=== PATIENT | male | born 1950 | race Caucasian/White ===

== ENCOUNTER 2020-06-09 17:24 | Inpatient (IN) ==
[2020-06-09] MEDS ORDERED: 0.9 % Sodium Chloride 1,000 ML IVC ONE ×3 (17:56→19:25)
[2020-06-09 18:23] LABS: Bilirubin,Urine Negative (Negative); Blood,Urine Large (Negative); Clarity,Urine Turbid (Clear); Color,Urine Yellow (Yellow); Glucose,Urine (UA) Normal (Normal); Ketones,Urine Negative (Negative); Leukocyte Esterase,Urine Large (Negative); Nitrite,Urine Positive (Negative); PH,Urine >=9.0 pH Units (5.0-8.0); Protein,Urine >=300 mg/dL (Neg-Trace); Specific Gravity,Urine 1.015 (1.010-1.025); Urobilinogen,Urine Normal (Normal)
[2020-06-09 18:25] LABS: Basophils # 0.1 K/mcL (0.0-0.2); Basophils % 0.3 %; Hematocrit 50.2 % (37.5-50.1); Hemoglobin 16.4 g/dL (12.9-16.9); Immature Granulocytes % 0.6 % (0-4); Lymphocytes # 0.7 K/mcL (0.6-4.6); Lymphocytes % 3.2 %; Mean Corpuscular HGB Conc 32.7 g/dL (31.6-35.5); Mean Corpuscular Hemoglobin 29.2 pg (28.0-33.3); Mean Corpuscular Volume 89.3 fL (83.0-100.0); Mean Platelet Volume 10.6 fL (9.4-12.4); Monocytes # 1.8 K/mcL (0.0-1.3); Monocytes % 8.1 %; Neutrophils # 19.1 K/mcL (1.6-8.9); Platelet Count 268 K/mcL (140-400); Red Blood Count 5.62 M/mcL (4.19-5.50); Red Cell Distribution Width 14.6 % (11.5-14.5); Segmented Neutrophils % 87.8 %; White Blood Count 21.7 K/mcL (4.3-11.1)
[2020-06-09 18:32] LABS: Bacteria,Urine Many per hpf (None-Few); Mucus,Urine Many per lpf (None-Few); RBC,Urine 30-50 per hpf (0-3); Squamous Epithelial Cell,Urine Few per hpf (None-Few); WBC,Urine TNTC per hpf (0-3)
[2020-06-09 18:35] LABS: VBG HCO3 28 mEq/L (21-27); VBG PCO2 44 mmHg (41-51); VBG PH 7.41 pH Units (7.32-7.42); VBG PO2 51 mmHg (25-50)
[2020-06-09 18:44] LABS: Albumin 4.1 g/dL (3.5-5.7); Albumin/Globulin Ratio 1.2 (1.1-2.2); Bilirubin,Total 1.1 mg/dL (0.3-1.0); Calcium 10.4 mg/dL (8.6-10.3); Globulin 3.5 g/dL (2.4-3.5); Potassium 5.3 mEq/L (3.5-5.1); Total Protein 7.6 g/dL (6.4-8.9)
[2020-06-09] MEDS ORDERED: D5% in Water 1,000 ML IVC PRN (19:25)
[2020-06-09] MEDS ORDERED: *HR* Dextrose 50 % in Water (Vial) 50 ML VIAL IVP PRN (19:25)
[2020-06-09] MEDS ORDERED: Naloxone 0.4 MG/ML INJ IVP PRN (19:25)
[2020-06-09] MEDS ORDERED: Dextrose Gel 15 GM/37.5 ML TUBE PO PRN ×2 (19:25)
[2020-06-09] MEDS ORDERED: Acetaminophen 325 MG TABLET PO PRN ×2 (19:36→19:49)
[2020-06-09] MEDS: 0.9 % Sodium Chloride 1,000 ML IVC SCH (20:10)
[2020-06-09] MEDS: Aspirin 81 MG TAB.CHEW PO SCH (21:49)
[2020-06-09] MEDS: levETIRAcetam 250 MG TABLET PO SCH (21:49)
[2020-06-10] MEDS ORDERED: Insulin LISPRO 300 UNITS/3 ML VIAL SQ SCH
[2020-06-10] MEDS: 0.9 % Sodium Chloride 1,000 ML IVC SCH ×3 (03:13→15:15)
[2020-06-10] MEDS: levETIRAcetam 250 MG TABLET PO SCH ×2 (09:28→22:07)
[2020-06-10] MEDS: Acetaminophen 325 MG TABLET PO PRN ×3 (09:29→22:07)
[2020-06-10] MEDS: *HR* Rivaroxaban 10 MG TABLET PO SCH (09:29)
[2020-06-10] MEDS: Insulin LISPRO 300 UNITS/3 ML VIAL SQ SCH ×4 (09:45→22:07)
[2020-06-10 10:28] LABS: Hematocrit 48.1 % (37.5-50.1); Hemoglobin 15.5 g/dL (12.9-16.9)
[2020-06-10 11:44] LABS: Basophils # 0.1 K/mcL (0.0-0.2); Basophils % 0.3 %; Hematocrit 46.2 % (37.5-50.1); Immature Granulocytes % 0.5 % (0-4); Lymphocytes # 0.4 K/mcL (0.6-4.6); Lymphocytes % 2.5 %; Mean Corpuscular HGB Conc 32.5 g/dL (31.6-35.5); Mean Corpuscular Hemoglobin 29.9 pg (28.0-33.3); Mean Platelet Volume 10.5 fL (9.4-12.4); Monocytes % 5.5 %; Neutrophils # 15.7 K/mcL (1.6-8.9); Platelet Count 218 K/mcL (140-400); Red Blood Count 5.02 M/mcL (4.19-5.50); Segmented Neutrophils % 91.2 %; White Blood Count 17.2 K/mcL (4.3-11.1)
[2020-06-10] MEDS: Nystatin POWDER 30 GM BOTTLE TP SCH ×2 (15:17→22:07)
[2020-06-10 16:52] LABS: BUN/Creatinine Ratio 20 (6-26); Blood Urea Nitrogen 27 mg/dL (8-23); Calcium 9.1 mg/dL (8.6-10.3); Carbon Dioxide 29 mEq/L (23-29); Chloride 102 mEq/L (98-107); Glucose 190 mg/dL (70-105); Osmolality,Calculated 294 (280-300); Potassium 4.9 mEq/L (3.5-5.1); Sodium 137 mEq/L (136-145); eGFR For African Americans > 60 (> 60); eGFR For Non-African Americans 52 (> 60)
[2020-06-10 20:58] LABS: Acinetobacter baumannii by PCR Not Detected (Not Detect); Enterobacter cloacae Cmplx PCR Not Detected (Not Detect); Enterobacteriaceae by PCR Not Detected (Not Detect); Enterococcus by PCR Not Detected (Not Detect); Escherichia coli by PCR Not Detected (Not Detect); Klebsiella oxytoca by PCR Not Detected (Not Detect); Klebsiella pneumoniae by PCR Not Detected (Not Detect); Staphylococcus aureus by PCR Not Detected (Not Detect); Staphylococcus by PCR Not Detected (Not Detect); Streptococcus agalactiae(B)PCR Not Detected (Not Detect); Streptococcus by PCR Not Detected (Not Detect); Streptococcus pneumoniae PCR Not Detected (Not Detect); Streptococcus pyogenes (A) PCR Not Detected (Not Detect); blaKPC Carbapenem-Resist Gene Not Detected (Not Detect); mecA Methicillin-Resist Gene Not Detected (Not Detect); vanA/B Vancomycin-Resist Genes Not Detected (Not Detect)
[2020-06-10 20:59] LABS: Candida albicans by PCR Not Detected (Not Detect); Candida glabrata by PCR Not Detected (Not Detect); Candida krusei by PCR Not Detected (Not Detect); Candida parapsilosis by PCR Not Detected (Not Detect); Candida tropicalis by PCR Not Detected (Not Detect); Proteus by PCR DETECTED (Not Detect); Pseudomonas aeruginosa by PCR Not Detected (Not Detect); Serratia marcescens by PCR Not Detected (Not Detect)
[2020-06-10] MEDS: Aspirin 81 MG TAB.CHEW PO SCH (22:06)
[2020-06-11] MEDS: 0.9 % Sodium Chloride 1,000 ML IVC SCH ×2 (01:08→09:40)
[2020-06-11] MEDS: Acetaminophen 325 MG TABLET PO PRN ×2 (04:06→20:33)
[2020-06-11] MEDS: Ondansetron 4 MG/2 ML VIAL IVP PRN (04:06)
[2020-06-11 09:18] LABS: Basophils % 0.3 %; Hematocrit 46.8 % (37.5-50.1); Hemoglobin 14.5 g/dL (12.9-16.9); Immature Granulocytes % 0.4 % (0-4); Lymphocytes # 0.5 K/mcL (0.6-4.6); Lymphocytes % 5.4 %; Mean Corpuscular Hemoglobin 29.3 pg (28.0-33.3); Mean Corpuscular Volume 94.5 fL (83.0-100.0); Mean Platelet Volume 10.6 fL (9.4-12.4); Monocytes # 0.8 K/mcL (0.0-1.3); Monocytes % 7.9 %; Neutrophils # 8.4 K/mcL (1.6-8.9); Platelet Count 176 K/mcL (140-400); Red Blood Count 4.95 M/mcL (4.19-5.50); Red Cell Distribution Width 15.1 % (11.5-14.5); White Blood Count 9.7 K/mcL (4.3-11.1)
[2020-06-11 09:28] LABS: BUN/Creatinine Ratio 23 (6-26); Blood Urea Nitrogen 25 mg/dL (8-23); Calcium 8.6 mg/dL (8.6-10.3); Carbon Dioxide 30 mEq/L (23-29); Chloride 104 mEq/L (98-107); Glucose 187 mg/dL (70-105); Osmolality,Calculated 297 (280-300); Potassium 4.2 mEq/L (3.5-5.1); Sodium 139 mEq/L (136-145); eGFR For African Americans > 60 (> 60); eGFR For Non-African Americans > 60 (> 60)
[2020-06-11] MEDS: Insulin LISPRO 300 UNITS/3 ML VIAL SQ SCH ×4 (09:35→20:44)
[2020-06-11] MEDS: *HR* Rivaroxaban 10 MG TABLET PO SCH (09:36)
[2020-06-11] MEDS: Nystatin POWDER 30 GM BOTTLE TP SCH ×2 (09:36→20:31)
[2020-06-11] MEDS: levETIRAcetam 250 MG TABLET PO SCH ×2 (09:36→20:33)
[2020-06-11] MEDS: Ipratropium/Albuterol Neb 3 ML IH SCH ×3 (12:45→20:02)
[2020-06-11] MEDS: Aspirin 81 MG TAB.CHEW PO SCH (20:33)
[2020-06-12] MEDS: Ipratropium/Albuterol Neb 3 ML IH SCH ×6 (00:01→20:58)
[2020-06-12] MEDS: *HR* Rivaroxaban 10 MG TABLET PO SCH (08:51)
[2020-06-12] MEDS: levETIRAcetam 250 MG TABLET PO SCH ×2 (08:51→19:37)
[2020-06-12] MEDS: Insulin LISPRO 300 UNITS/3 ML VIAL SQ SCH ×4 (08:51→20:06)
[2020-06-12] MEDS: Nystatin POWDER 30 GM BOTTLE TP SCH ×2 (09:59→19:47)
[2020-06-12 14:24] LABS: Basophils % 0.3 %; Eosinophils # 0.1 K/mcL (0.0-0.6); Eosinophils % 0.8 %; Hematocrit 45.5 % (37.5-50.1); Hemoglobin 14.3 g/dL (12.9-16.9); Immature Granulocytes % 0.3 % (0-4); Lymphocytes # 0.6 K/mcL (0.6-4.6); Lymphocytes % 7.3 %; Mean Corpuscular HGB Conc 31.4 g/dL (31.6-35.5); Mean Corpuscular Hemoglobin 29.7 pg (28.0-33.3); Mean Corpuscular Volume 94.4 fL (83.0-100.0); Mean Platelet Volume 10.9 fL (9.4-12.4); Monocytes % 11.5 %; Neutrophils # 6.9 K/mcL (1.6-8.9); Platelet Count 161 K/mcL (140-400); Red Blood Count 4.82 M/mcL (4.19-5.50); Red Cell Distribution Width 14.7 % (11.5-14.5); Segmented Neutrophils % 79.8 %; White Blood Count 8.6 K/mcL (4.3-11.1)
[2020-06-12 14:46] LABS: BUN/Creatinine Ratio 19 (6-26); Blood Urea Nitrogen 19 mg/dL (8-23); Calcium 8.5 mg/dL (8.6-10.3); Carbon Dioxide 32 mEq/L (23-29); Chloride 100 mEq/L (98-107); Glucose 230 mg/dL (70-105); Osmolality,Calculated 292 (280-300); Potassium 4.4 mEq/L (3.5-5.1); Sodium 136 mEq/L (136-145); eGFR For African Americans > 60 (> 60); eGFR For Non-African Americans > 60 (> 60)
[2020-06-12] MEDS: Acetaminophen 325 MG TABLET PO PRN (17:33)
[2020-06-12] MEDS: Aspirin 81 MG TAB.CHEW PO SCH (19:37)
[2020-06-12] MEDS ORDERED: Ondansetron 4 MG/2 ML VIAL IVP ONE (20:17)
[2020-06-12] MEDS: Ondansetron 4 MG/2 ML VIAL IVP PRN (20:25)
[2020-06-13] MEDS: Ipratropium/Albuterol Neb 3 ML IH SCH ×5 (00:13→15:23)
[2020-06-13 07:40] LABS: Basophils % 0.3 %; Eosinophils # 0.1 K/mcL (0.0-0.6); Hematocrit 45.7 % (37.5-50.1); Hemoglobin 14.3 g/dL (12.9-16.9); Immature Granulocytes % 0.3 % (0-4); Lymphocytes # 0.8 K/mcL (0.6-4.6); Lymphocytes % 8.4 %; Mean Corpuscular HGB Conc 31.3 g/dL (31.6-35.5); Mean Corpuscular Hemoglobin 29.2 pg (28.0-33.3); Mean Corpuscular Volume 93.3 fL (83.0-100.0); Mean Platelet Volume 11.1 fL (9.4-12.4); Monocytes % 11.5 %; Neutrophils # 7.1 K/mcL (1.6-8.9); Platelet Count 173 K/mcL (140-400); Red Cell Distribution Width 14.5 % (11.5-14.5); Segmented Neutrophils % 78.5 %; White Blood Count 9.1 K/mcL (4.3-11.1)
[2020-06-13 07:51] LABS: BUN/Creatinine Ratio 19 (6-26); Blood Urea Nitrogen 18 mg/dL (8-23); Calcium 8.6 mg/dL (8.6-10.3); Carbon Dioxide 35 mEq/L (23-29); Chloride 98 mEq/L (98-107); Glucose 199 mg/dL (70-105); Osmolality,Calculated 291 (280-300); Potassium 4.1 mEq/L (3.5-5.1); Sodium 137 mEq/L (136-145); eGFR For African Americans > 60 (> 60); eGFR For Non-African Americans > 60 (> 60)
[2020-06-13] MEDS: *HR* Rivaroxaban 10 MG TABLET PO SCH (09:12)
[2020-06-13] MEDS: Nystatin POWDER 30 GM BOTTLE TP SCH (09:13)
[2020-06-13] MEDS: levETIRAcetam 250 MG TABLET PO SCH (09:13)
[2020-06-13 11:32] VITALS: BP 119/69
[2020-06-13] MEDS: Insulin LISPRO 300 UNITS/3 ML VIAL SQ SCH ×2 (12:52→12:53)
== END 2020-06-13 15:55 | disposition home or self-care (01) | DRG 871 ==
LOC: INPGRE 17:24 → EMEROOGRE 17:24 → INPGRE 20:05
PROVIDERS: ADMIT Family Medicine; ATTEND Family Medicine

== ENCOUNTER 2020-08-14 10:54 | Inpatient (IN) ==
[2020-08-14 11:54] LABS: Bilirubin,Urine Negative (Negative); Blood,Urine Moderate (Negative); Clarity,Urine Clear (Clear); Color,Urine Yellow (Yellow); Glucose,Urine (UA) Normal (Normal); Ketones,Urine Negative (Negative); Leukocyte Esterase,Urine Moderate (Negative); Nitrite,Urine Positive (Negative); PH,Urine 5.5 pH Units (5.0-8.0); Protein,Urine 30 mg/dL (Neg-Trace); Specific Gravity,Urine >= 1.030 (1.010-1.025); Urobilinogen,Urine Normal (Normal)
[2020-08-14 12:02] LABS: Bacteria,Urine Many per hpf (None-Few); WBC,Urine TNTC per hpf (0-3)
[2020-08-14] MEDS ORDERED: cefTRIAXone 1,000 MG in Water for inj. (sterile) 10 ML IVP ONE (12:35)
[2020-08-14 13:06] LABS: Basophils # 0.1 K/mcL (0.0-0.2); Basophils % 0.8 %; Eosinophils # 0.6 K/mcL (0.0-0.6); Eosinophils % 5.5 %; Hematocrit 49.9 % (37.5-50.1); Hemoglobin 15.9 g/dL (12.9-16.9); Immature Granulocytes % 0.4 % (0-4); Lymphocytes # 1.8 K/mcL (0.6-4.6); Lymphocytes % 16.4 %; Mean Corpuscular HGB Conc 31.9 g/dL (31.6-35.5); Mean Corpuscular Hemoglobin 29.2 pg (28.0-33.3); Mean Corpuscular Volume 91.7 fL (83.0-100.0); Mean Platelet Volume 11.1 fL (9.4-12.4); Monocytes % 9.2 %; Neutrophils # 7.6 K/mcL (1.6-8.9); Platelet Count 253 K/mcL (140-400); Red Blood Count 5.44 M/mcL (4.19-5.50); Red Cell Distribution Width 14.7 % (11.5-14.5); Segmented Neutrophils % 67.7 %; White Blood Count 11.2 K/mcL (4.3-11.1)
[2020-08-14 13:12] LABS: INR 1.6; Prothrombin Time 18.2 Seconds (9.4-12.1)
[2020-08-14 13:13] LABS: VBG HCO3 34 mEq/L (21-27); VBG PCO2 64 mmHg (41-51); VBG PH 7.33 pH Units (7.32-7.42); VBG PO2 43 mmHg (25-50)
[2020-08-14 13:14] LABS: Activated Partial Thrombo Time 40.4 Seconds (26.0-36.0)
[2020-08-14] MEDS: 0.9 % Sodium Chloride 1,000 ML IVC SCH ×3 (13:18→19:35)
[2020-08-14 15:23] LABS: Alanine Aminotransferase 9 Units/L (7-52); Albumin 2.8 g/dL (3.5-5.7); Albumin/Globulin Ratio 0.9 (1.1-2.2); Alkaline Phosphatase 52 Units/L (34-104); Aspartate Amino Transferase 9 Units/L (13-39); BUN/Creatinine Ratio 21 (6-26); Bilirubin,Indirect 0.3 mg/dL (0.0-1.0); Bilirubin,Total 0.3 mg/dL (0.3-1.0); Blood Urea Nitrogen 24 mg/dL (8-23); Calcium 7.4 mg/dL (8.6-10.3); Carbon Dioxide 31 mEq/L (23-29); Chloride 106 mEq/L (98-107); Glucose 142 mg/dL (70-105); Osmolality,Calculated 294 (280-300); Potassium 3.6 mEq/L (3.5-5.1); Sodium 139 mEq/L (136-145); Total Protein 5.8 g/dL (6.4-8.9); eGFR For African Americans > 60 (> 60); eGFR For Non-African Americans > 60 (> 60)
[2020-08-14] MEDS ORDERED: Acetaminophen 325 MG TABLET PO PRN ×2 (17:22→18:02)
[2020-08-14] MEDS ORDERED: Mag Hydrox/Al Hydrox/Simeth 30 ML UDC PO PRN (17:22)
[2020-08-14] MEDS ORDERED: MOM Conc 10 ML UD.LIQ PO PRN (17:22)
[2020-08-14] MEDS ORDERED: Naloxone 0.4 MG/ML INJ IVP PRN (17:22)
[2020-08-14] MEDS ORDERED: Ondansetron ODT 4 MG TAB.RAPDIS SL PRN (17:22)
[2020-08-14] MEDS ORDERED: Ondansetron 4 MG/2 ML VIAL IVP PRN (17:22)
[2020-08-14] MEDS ORDERED: Ipratropium/Albuterol Neb 3 ML IH PRN (18:09)
[2020-08-14] MEDS ORDERED: Dextrose Gel 15 GM/37.5 ML TUBE PO PRN ×2 (18:14)
[2020-08-14] MEDS ORDERED: D5% in Water 1,000 ML IVC PRN (18:14)
[2020-08-14] MEDS ORDERED: *HR* Dextrose 50 % in Water (Vial) 50 ML VIAL IVP PRN (18:14)
[2020-08-14] MEDS: Aspirin 81 MG TAB.CHEW PO SCH (20:26)
[2020-08-14] MEDS: levETIRAcetam 250 MG TABLET PO SCH (20:27)
[2020-08-14] MEDS: Nystatin POWDER 30 GM BOTTLE TP SCH (20:31)
[2020-08-14] MEDS: Insulin LISPRO 300 UNITS/3 ML VIAL SUBQ SCH (20:32)
[2020-08-14] MEDS: Cefepime HCl 1,000 MG in 0.9 % Sodium Chloride Mini Bag 100 ML IVPB SCH (23:49)
[2020-08-15 08:54] LABS: Basophils # 0.1 K/mcL (0.0-0.2); Basophils % 0.8 %; Eosinophils # 0.6 K/mcL (0.0-0.6); Hematocrit 48.2 % (37.5-50.1); Immature Granulocytes % 0.4 % (0-4); Lymphocytes # 1.9 K/mcL (0.6-4.6); Lymphocytes % 18.3 %; Mean Corpuscular HGB Conc 31.1 g/dL (31.6-35.5); Mean Corpuscular Hemoglobin 28.8 pg (28.0-33.3); Mean Corpuscular Volume 92.7 fL (83.0-100.0); Monocytes % 9.5 %; Neutrophils # 6.8 K/mcL (1.6-8.9); Platelet Count 248 K/mcL (140-400); Red Cell Distribution Width 14.6 % (11.5-14.5); White Blood Count 10.4 K/mcL (4.3-11.1)
[2020-08-15 09:21] LABS: Alanine Aminotransferase 12 Units/L (7-52); Albumin 3.6 g/dL (3.5-5.7); Albumin/Globulin Ratio 0.9 (1.1-2.2); Alkaline Phosphatase 70 Units/L (34-104); Aspartate Amino Transferase 14 Units/L (13-39); BUN/Creatinine Ratio 18 (6-26); Bilirubin,Total 0.5 mg/dL (0.3-1.0); Blood Urea Nitrogen 20 mg/dL (8-23); Calcium 9.5 mg/dL (8.6-10.3); Carbon Dioxide 34 mEq/L (23-29); Chloride 98 mEq/L (98-107); Globulin 3.9 g/dL (2.4-3.5); Glucose 137 mg/dL (70-105); Osmolality,Calculated 287 (280-300); Phosphorous 2.9 mg/dL (2.7-4.5); Potassium 4.4 mEq/L (3.5-5.1); Sodium 136 mEq/L (136-145); Total Protein 7.5 g/dL (6.4-8.9); eGFR For African Americans > 60 (> 60); eGFR For Non-African Americans > 60 (> 60)
[2020-08-15] MEDS: Cefepime HCl 1,000 MG in 0.9 % Sodium Chloride Mini Bag 100 ML IVPB SCH ×2 (10:01→16:22)
[2020-08-15] MEDS: Nystatin POWDER 30 GM BOTTLE TP SCH ×2 (10:02→20:55)
[2020-08-15] MEDS: levETIRAcetam 250 MG TABLET PO SCH ×2 (10:03→20:54)
[2020-08-15] MEDS: Insulin LISPRO 300 UNITS/3 ML VIAL SUBQ SCH ×4 (10:04→22:13)
[2020-08-15] MEDS: 0.9 % Sodium Chloride 1,000 ML IVC SCH (10:19)
[2020-08-15] MEDS: *HR* Rivaroxaban 15 MG TABLET PO SCH (16:22)
[2020-08-15] MEDS: Aspirin 81 MG TAB.CHEW PO SCH (20:54)
[2020-08-16] MEDS: 0.9 % Sodium Chloride 1,000 ML IVC SCH ×2 (03:02→17:07)
[2020-08-16 05:40] LABS: Hematocrit 44.9 % (37.5-50.1); Hemoglobin 14.1 g/dL (12.9-16.9); Mean Corpuscular HGB Conc 31.4 g/dL (31.6-35.5); Mean Corpuscular Hemoglobin 29.1 pg (28.0-33.3); Mean Corpuscular Volume 92.6 fL (83.0-100.0); Mean Platelet Volume 10.7 fL (9.4-12.4); Platelet Count 219 K/mcL (140-400); Red Blood Count 4.85 M/mcL (4.19-5.50); Red Cell Distribution Width 14.6 % (11.5-14.5); White Blood Count 7.7 K/mcL (4.3-11.1)
[2020-08-16 05:54] LABS: BUN/Creatinine Ratio 19 (6-26); Blood Urea Nitrogen 18 mg/dL (8-23); Calcium 9.1 mg/dL (8.6-10.3); Carbon Dioxide 33 mEq/L (23-29); Chloride 101 mEq/L (98-107); Glucose 160 mg/dL (70-105); Magnesium 2.1 mg/dL (1.6-2.6); Osmolality,Calculated 295 (280-300); Sodium 140 mEq/L (136-145); eGFR For African Americans > 60 (> 60); eGFR For Non-African Americans > 60 (> 60)
[2020-08-16] MEDS: levETIRAcetam 250 MG TABLET PO SCH ×2 (08:04→21:45)
[2020-08-16] MEDS: Insulin LISPRO 300 UNITS/3 ML VIAL SUBQ SCH ×4 (08:05→22:06)
[2020-08-16] MEDS: Cefepime HCl 1,000 MG in 0.9 % Sodium Chloride Mini Bag 100 ML IVPB SCH ×3 (08:05→17:03)
[2020-08-16] MEDS: Nystatin POWDER 30 GM BOTTLE TP SCH ×2 (08:05→22:06)
[2020-08-16] MEDS: *HR* Rivaroxaban 15 MG TABLET PO SCH (17:15)
[2020-08-16] MEDS: Aspirin 81 MG TAB.CHEW PO SCH (21:45)
[2020-08-17] MEDS: Cefepime HCl 1,000 MG in 0.9 % Sodium Chloride Mini Bag 100 ML IVPB SCH ×2 (00:15→07:54)
[2020-08-17] MEDS: 0.9 % Sodium Chloride 1,000 ML IVC SCH ×2 (07:53→10:27)
[2020-08-17] MEDS: levETIRAcetam 250 MG TABLET PO SCH ×2 (08:18→20:37)
[2020-08-17] MEDS: Insulin LISPRO 300 UNITS/3 ML VIAL SUBQ SCH ×3 (08:19→17:58)
[2020-08-17] MEDS: Nystatin POWDER 30 GM BOTTLE TP SCH ×2 (08:20→20:38)
[2020-08-17] MEDS ORDERED: Doxycycline 100 MG in 0.9 % Sodium Chloride Mini Bag 100 ML IVPB SCH (09:01)
[2020-08-17] MEDS: levoFLOXacin 750 MG/150 ML 750 MG/150 ML BAG IVPB SCH (14:34)
[2020-08-17] MEDS ORDERED: *HR* Rivaroxaban 10 MG TABLET PO SCH (18:00)
[2020-08-17] MEDS: *HR* Rivaroxaban 15 MG TABLET PO SCH (18:39)
[2020-08-17] MEDS: Aspirin 81 MG TAB.CHEW PO SCH (20:37)
[2020-08-18] MEDS: Insulin LISPRO 300 UNITS/3 ML VIAL SUBQ SCH ×3 (00:15→12:40)
[2020-08-18 06:23] LABS: Hematocrit 46.2 % (37.5-50.1); Hemoglobin 14.8 g/dL (12.9-16.9); Mean Corpuscular Volume 90.4 fL (83.0-100.0); Mean Platelet Volume 11.1 fL (9.4-12.4); Platelet Count 227 K/mcL (140-400); Red Blood Count 5.11 M/mcL (4.19-5.50); Red Cell Distribution Width 14.4 % (11.5-14.5); White Blood Count 8.6 K/mcL (4.3-11.1)
[2020-08-18 06:37] LABS: Alanine Aminotransferase 11 Units/L (7-52); Albumin 3.6 g/dL (3.5-5.7); Alkaline Phosphatase 59 Units/L (34-104); Aspartate Amino Transferase 13 Units/L (13-39); BUN/Creatinine Ratio 16 (6-26); Bilirubin,Total 0.5 mg/dL (0.3-1.0); Blood Urea Nitrogen 14 mg/dL (8-23); Calcium 9.4 mg/dL (8.6-10.3); Carbon Dioxide 34 mEq/L (23-29); Chloride 98 mEq/L (98-107); Globulin 3.5 g/dL (2.4-3.5); Glucose 137 mg/dL (70-105); Magnesium 2.1 mg/dL (1.6-2.6); Osmolality,Calculated 287 (280-300); Sodium 137 mEq/L (136-145); Total Protein 7.1 g/dL (6.4-8.9); eGFR For African Americans > 60 (> 60); eGFR For Non-African Americans > 60 (> 60)
[2020-08-18 07:46] VITALS: BP 154/74
[2020-08-18] MEDS: levETIRAcetam 250 MG TABLET PO SCH (08:58)
[2020-08-18] MEDS: Nystatin POWDER 30 GM BOTTLE TP SCH (08:59)
[2020-08-18] MEDS: levoFLOXacin 750 MG/150 ML 750 MG/150 ML BAG IVPB SCH (12:40)
== END 2020-08-18 16:20 | disposition home or self-care (01) | DRG 872 ==
LOC: EMEROOGRE 10:54 → INPGRE 15:03 → INTOOBSV 15:03 → INPGRE 15:46
PROVIDERS: ADMIT Family Medicine; ATTEND Family Medicine

== ENCOUNTER 2020-11-12 08:14 | Observation (INO) ==
[2020-11-12 08:41] LABS: Basophils # 0.1 K/mcL (0.0-0.2); Basophils % 0.4 %; Eosinophils % 0.1 %; Hematocrit 50.7 % (37.5-50.1); Hemoglobin 16.3 g/dL (12.9-16.9); Immature Granulocytes % 0.5 % (0-4); Lymphocytes # 1.3 K/mcL (0.6-4.6); Lymphocytes % 6.6 %; Mean Corpuscular HGB Conc 32.1 g/dL (31.6-35.5); Mean Corpuscular Hemoglobin 28.8 pg (28.0-33.3); Mean Corpuscular Volume 89.6 fL (83.0-100.0); Monocytes # 1.9 K/mcL (0.0-1.3); Monocytes % 9.7 %; Neutrophils # 15.9 K/mcL (1.6-8.9); Platelet Count 258 K/mcL (140-400); Red Blood Count 5.66 M/mcL (4.19-5.50); Red Cell Distribution Width 14.7 % (11.5-14.5); Segmented Neutrophils % 82.7 %; White Blood Count 19.2 K/mcL (4.3-11.1)
[2020-11-12] MEDS ORDERED: Piperacillin/Tazobactam 3.375 GM in 0.9 % Sodium Chloride Mini Bag 100 ML IVPB ONE (08:53)
[2020-11-12] MEDS ORDERED: 0.9 % Sodium Chloride 1,000 ML IV ONE (08:53)
[2020-11-12 08:56] LABS: INR 1.3; Prothrombin Time 14.4 Seconds (9.4-12.1)
[2020-11-12 08:59] LABS: Alanine Aminotransferase 11 Units/L (7-52); Albumin/Globulin Ratio 1.1 (1.1-2.2); Alkaline Phosphatase 66 Units/L (34-104); Amylase 26 Units/L (29-103); Aspartate Amino Transferase 16 Units/L (13-39); BUN/Creatinine Ratio 25 (6-26); Bilirubin,Total 1.1 mg/dL (0.3-1.0); Blood Urea Nitrogen 31 mg/dL (8-23); Calcium 9.8 mg/dL (8.6-10.3); Carbon Dioxide 30 mEq/L (23-29); Chloride 97 mEq/L (98-107); Globulin 3.8 g/dL (2.4-3.5); Glucose 222 mg/dL (70-105); Lipase 8 Units/L (11-82); Magnesium 1.8 mg/dL (1.6-2.6); Osmolality,Calculated 295 (280-300); Potassium 4.3 mEq/L (3.5-5.1); Sodium 136 mEq/L (136-145); Total Protein 7.8 g/dL (6.4-8.9); eGFR For African Americans > 60 (> 60); eGFR For Non-African Americans 57 (> 60)
[2020-11-12 09:00] LABS: Bilirubin,Urine Small (Negative); Blood,Urine Large (Negative); Glucose,Urine (UA) Normal (Normal); Ketones,Urine Negative (Negative); Leukocyte Esterase,Urine Large (Negative); Nitrite,Urine Positive (Negative); Protein,Urine >=300 mg/dL (Neg-Trace); Urobilinogen,Urine Normal (Normal)
[2020-11-12 09:00] LABS: Troponin I < 0.03 ng/mL (< 0.04)
[2020-11-12 09:01] LABS: Clarity,Urine Cloudy (Clear); Color,Urine Red (Yellow)
[2020-11-12] MEDS ORDERED: Isovue-370 500 ML BOTTLE IVP ONE (09:05)
[2020-11-12 09:08] LABS: Bacteria,Urine Many per hpf (None-Few); RBC,Urine TNTC per hpf (0-3); WBC,Urine TNTC per hpf (0-3)
[2020-11-12] MEDS ORDERED: Acetaminophen 325 MG TABLET PO PRN (11:01)
[2020-11-12] MEDS ORDERED: 0.9 % Sodium Chloride 1,000 ML IVC SCH (11:15)
[2020-11-12] MEDS ORDERED: *HR* Dextrose 50 % in Water (Vial) 50 ML VIAL IVP PRN (14:03)
[2020-11-12] MEDS ORDERED: Dextrose Gel 15 GM/37.5 ML TUBE PO PRN ×2 (14:03)
[2020-11-12] MEDS ORDERED: D5% in Water 1,000 ML IVC PRN (14:03)
[2020-11-12] MEDS ORDERED: Ipratropium/Albuterol Neb 3 ML ONE (15:36)
[2020-11-12] MEDS: Ipratropium/Albuterol Neb 3 ML IH PRN (15:42)
[2020-11-12] MEDS: *HR* OxyCODONE Immed Rel 5 MG TABLET PO SCH ×2 (16:52→17:20)
[2020-11-12] MEDS: Insulin LISPRO 300 UNITS/3 ML VIAL SUBQ SCH ×2 (16:52→20:55)
[2020-11-12] MEDS: Piperacillin/Tazobactam 3.375 GM in 0.9 % Sodium Chloride Mini Bag 100 ML IVPB SCH ×2 (16:53→23:55)
[2020-11-12] MEDS: levETIRAcetam 250 MG TABLET PO SCH (20:54)
[2020-11-12] MEDS: Insulin DETEMIR 100 UNIT/ML X5UNITS SUBQ SCH (20:55)
[2020-11-13] MEDS: levETIRAcetam 250 MG TABLET PO SCH ×2 (08:07→19:48)
[2020-11-13] MEDS: *HR* Rivaroxaban 10 MG TABLET PO SCH (08:07)
[2020-11-13] MEDS: Piperacillin/Tazobactam 3.375 GM in 0.9 % Sodium Chloride Mini Bag 100 ML IVPB SCH ×2 (08:08→16:35)
[2020-11-13] MEDS: Insulin DETEMIR 100 UNIT/ML X5UNITS SUBQ SCH ×2 (08:08→20:02)
[2020-11-13] MEDS: Insulin LISPRO 300 UNITS/3 ML VIAL SUBQ SCH ×4 (08:09→20:01)
[2020-11-13 08:10] LABS: Basophils # 0.1 K/mcL (0.0-0.2); Basophils % 0.5 %; Eosinophils # 0.3 K/mcL (0.0-0.6); Eosinophils % 2.1 %; Hematocrit 46.2 % (37.5-50.1); Hemoglobin 14.1 g/dL (12.9-16.9); Immature Granulocytes % 0.4 % (0-4); Lymphocytes # 1.5 K/mcL (0.6-4.6); Lymphocytes % 10.6 %; Mean Corpuscular HGB Conc 30.5 g/dL (31.6-35.5); Mean Corpuscular Hemoglobin 28.3 pg (28.0-33.3); Mean Corpuscular Volume 92.8 fL (83.0-100.0); Mean Platelet Volume 10.9 fL (9.4-12.4); Monocytes # 1.1 K/mcL (0.0-1.3); Monocytes % 8.2 %; Neutrophils # 10.9 K/mcL (1.6-8.9); Platelet Count 214 K/mcL (140-400); Red Blood Count 4.98 M/mcL (4.19-5.50); Red Cell Distribution Width 15.1 % (11.5-14.5); Segmented Neutrophils % 78.2 %; White Blood Count 13.9 K/mcL (4.3-11.1)
[2020-11-13] MEDS: *HR* OxyCODONE Immed Rel 5 MG TABLET PO SCH ×5 (08:10→19:47)
[2020-11-13 08:26] LABS: BUN/Creatinine Ratio 27 (6-26); Blood Urea Nitrogen 30 mg/dL (8-23); Calcium 8.8 mg/dL (8.6-10.3); Carbon Dioxide 31 mEq/L (23-29); Chloride 102 mEq/L (98-107); Glucose 188 mg/dL (70-105); Osmolality,Calculated 295 (280-300); Potassium 4.1 mEq/L (3.5-5.1); Sodium 137 mEq/L (136-145); eGFR For African Americans > 60 (> 60); eGFR For Non-African Americans > 60 (> 60)
[2020-11-14] MEDS: *HR* OxyCODONE Immed Rel 5 MG TABLET PO SCH ×3 (00:13→12:37)
[2020-11-14] MEDS: Piperacillin/Tazobactam 3.375 GM in 0.9 % Sodium Chloride Mini Bag 100 ML IVPB SCH ×2 (00:13→08:37)
[2020-11-14] MEDS: Insulin LISPRO 300 UNITS/3 ML VIAL SUBQ SCH ×2 (08:36→12:34)
[2020-11-14] MEDS: *HR* Rivaroxaban 10 MG TABLET PO SCH (08:37)
[2020-11-14] MEDS: Insulin DETEMIR 100 UNIT/ML X5UNITS SUBQ SCH (08:37)
[2020-11-14] MEDS: levETIRAcetam 250 MG TABLET PO SCH (08:37)
[2020-11-14 09:54] LABS: Basophils # 0.1 K/mcL (0.0-0.2); Basophils % 0.7 %; Eosinophils # 0.6 K/mcL (0.0-0.6); Eosinophils % 4.9 %; Hemoglobin 14.1 g/dL (12.9-16.9); Immature Granulocytes % 0.5 % (0-4); Lymphocytes % 16.5 %; Mean Corpuscular Hemoglobin 28.5 pg (28.0-33.3); Mean Corpuscular Volume 94.9 fL (83.0-100.0); Monocytes # 1.1 K/mcL (0.0-1.3); Monocytes % 9.1 %; Neutrophils # 8.4 K/mcL (1.6-8.9); Platelet Count 234 K/mcL (140-400); Red Blood Count 4.95 M/mcL (4.19-5.50); Red Cell Distribution Width 14.8 % (11.5-14.5); Segmented Neutrophils % 68.3 %; White Blood Count 12.3 K/mcL (4.3-11.1)
[2020-11-14] MEDS: Ipratropium/Albuterol Neb 3 ML IH PRN (09:58)
[2020-11-14 10:00] LABS: BUN/Creatinine Ratio 22 (6-26); Blood Urea Nitrogen 25 mg/dL (8-23); Calcium 8.8 mg/dL (8.6-10.3); Carbon Dioxide 32 mEq/L (23-29); Chloride 101 mEq/L (98-107); Glucose 156 mg/dL (70-105); Osmolality,Calculated 296 (280-300); Potassium 4.2 mEq/L (3.5-5.1); Sodium 139 mEq/L (136-145); eGFR For African Americans > 60 (> 60); eGFR For Non-African Americans > 60 (> 60)
[2020-11-14 11:28] VITALS: BP 117/68
[2020-11-14] MEDS ORDERED: *HR* OxyCODONE Immed Rel 5 MG TABLET PO PRN (12:13)
== END 2020-11-14 16:10 | disposition home health service (06) ==
LOC: EMEROOGRE 08:14 → INPGRE 08:14
PROVIDERS: ADMIT Family Medicine; ATTEND Family Medicine

== ENCOUNTER 2021-01-07 10:42 | Inpatient (IN) ==
[2021-01-07] MEDS ORDERED: Dextrose Gel 15 GM/37.5 ML TUBE PO PRN ×2 (16:25)
[2021-01-07] MEDS ORDERED: *HR* Dextrose 50 % in Water (Vial) 50 ML VIAL IVP PRN (16:25)
[2021-01-07] MEDS ORDERED: D5% in Water 1,000 ML IVC PRN (16:25)
[2021-01-07] MEDS ORDERED: *HR* OxyCODONE Immed Rel 5 MG TABLET PO PRN (16:56)
[2021-01-07] MEDS: Insulin LISPRO 300 UNITS/3 ML VIAL SUBQ SCH ×2 (17:58→21:02)
[2021-01-07] MEDS ORDERED: Insulin DETEMIR 100 UNIT/ML per UNIT SUBQ ONE (21:00)
[2021-01-07] MEDS: Aspirin 81 MG TAB.CHEW PO SCH (21:01)
[2021-01-07] MEDS: levETIRAcetam 250 MG TABLET PO SCH (21:01)
[2021-01-08 05:15] LABS: Basophils # 0.1 K/mcL (0.0-0.2); Basophils % 0.6 %; Eosinophils # 0.5 K/mcL (0.0-0.6); Eosinophils % 5.6 %; Hematocrit 47.5 % (37.5-50.1); Hemoglobin 14.7 g/dL (12.9-16.9); Immature Granulocytes % 0.2 % (0-4); Lymphocytes # 1.4 K/mcL (0.6-4.6); Lymphocytes % 15.9 %; Mean Corpuscular HGB Conc 30.9 g/dL (31.6-35.5); Mean Corpuscular Hemoglobin 28.5 pg (28.0-33.3); Mean Corpuscular Volume 92.1 fL (83.0-100.0); Mean Platelet Volume 10.5 fL (9.4-12.4); Monocytes # 0.8 K/mcL (0.0-1.3); Monocytes % 9.1 %; Platelet Count 221 K/mcL (140-400); Red Blood Count 5.16 M/mcL (4.19-5.50); Red Cell Distribution Width 14.3 % (11.5-14.5); Segmented Neutrophils % 68.6 %; White Blood Count 8.8 K/mcL (4.3-11.1)
[2021-01-08 05:32] LABS: Alanine Aminotransferase 14 Units/L (7-52); Albumin 3.6 g/dL (3.5-5.7); Alkaline Phosphatase 58 Units/L (34-104); Aspartate Amino Transferase 13 Units/L (13-39); BUN/Creatinine Ratio 23 (6-26); Bilirubin,Total 0.4 mg/dL (0.3-1.0); Blood Urea Nitrogen 20 mg/dL (8-23); Calcium 9.5 mg/dL (8.6-10.3); Carbon Dioxide 39 mEq/L (23-29); Chloride 96 mEq/L (98-107); Globulin 3.6 g/dL (2.4-3.5); Glucose 142 mg/dL (70-105); Magnesium 2.1 mg/dL (1.6-2.6); Osmolality,Calculated 293 (280-300); Potassium 4.1 mEq/L (3.5-5.1); Sodium 139 mEq/L (136-145); Total Protein 7.2 g/dL (6.4-8.9); eGFR For African Americans > 60 (> 60); eGFR For Non-African Americans > 60 (> 60)
[2021-01-08] MEDS: Insulin LISPRO 300 UNITS/3 ML VIAL SUBQ SCH ×4 (08:02→20:44)
[2021-01-08] MEDS: *HR* Rivaroxaban 10 MG TABLET PO SCH (10:30)
[2021-01-08] MEDS: levETIRAcetam 250 MG TABLET PO SCH ×2 (10:30→20:44)
[2021-01-08] MEDS: Insulin DETEMIR 100 UNIT/ML X5UNITS SUBQ SCH ×2 (10:31→20:43)
[2021-01-08] MEDS: Furosemide 40 MG TABLET PO SCH (16:45)
[2021-01-08] MEDS ORDERED: Ipratropium/Albuterol Neb 3 ML IH ONE (18:21)
[2021-01-08] MEDS ORDERED: Ipratropium/Albuterol Neb 3 ML IH SCH (20:00)
[2021-01-08] MEDS: Aspirin 81 MG TAB.CHEW PO SCH (20:44)
[2021-01-08] MEDS: Ipratropium/Albuterol Neb 3 ML IH PRN (20:47)
[2021-01-09] MEDS: Ipratropium/Albuterol Neb 3 ML IH PRN ×2 (03:37→07:59)
[2021-01-09] MEDS: Insulin LISPRO 300 UNITS/3 ML VIAL SUBQ SCH ×4 (08:25→22:25)
[2021-01-09] MEDS: *HR* Rivaroxaban 10 MG TABLET PO SCH (08:25)
[2021-01-09] MEDS: levETIRAcetam 250 MG TABLET PO SCH ×2 (08:25→22:24)
[2021-01-09] MEDS: Furosemide 40 MG TABLET PO SCH (08:26)
[2021-01-09] MEDS: Insulin DETEMIR 100 UNIT/ML X5UNITS SUBQ SCH ×2 (08:29→22:24)
[2021-01-09 12:22] LABS: ABG Base Excess 12 mEq/L (-2 to 3); ABG HCO3 41 mEq/L (21-27); ABG Oxygen Saturation 94 % (95-98); ABG PCO2 70 mmHg (35-45); ABG PH 7.38 pH Units (7.32-7.45); ABG PO2 77 mmHg (85-104); ABG TCO2 43 mEq/L (20-26)
[2021-01-09 14:50] LABS: Bilirubin,Urine Negative (Negative); Blood,Urine Trace-lysed (Negative); Clarity,Urine Clear (Clear); Color,Urine Yellow (Yellow); Glucose,Urine (UA) Normal (Normal); Ketones,Urine Negative (Negative); Leukocyte Esterase,Urine Small (Negative); Nitrite,Urine Negative (Negative); PH,Urine 5.5 pH Units (5.0-8.0); Protein,Urine 30 mg/dL (Neg-Trace); Specific Gravity,Urine >= 1.030 (1.010-1.025); Urobilinogen,Urine Normal (Normal)
[2021-01-09 15:04] LABS: WBC,Urine 15-30 per hpf (0-3)
[2021-01-09 15:30] LABS: VBG HCO3 39 mEq/L (21-27); VBG PCO2 61 mmHg (41-51); VBG PH 7.41 pH Units (7.32-7.42); VBG PO2 61 mmHg (25-50)
[2021-01-09] MEDS ORDERED: Furosemide 40 MG/4 ML VIAL IVP ONE (15:40)
[2021-01-09] MEDS ORDERED: Ipratropium/Albuterol Neb 3 ML ONE (15:47)
[2021-01-09] MEDS ORDERED: Perflutren Lipid Microsphere 1.3 ML in 0.9 % Sodium Chloride 8.7 ML IVP PRN (15:55)
[2021-01-09] MEDS: Ipratropium/Albuterol Neb 3 ML IH SCH ×2 (16:10→21:06)
[2021-01-09] MEDS: acetaZOLAMIDE 250 MG TABLET PO SCH (17:58)
[2021-01-09] MEDS: levoFLOXacin 500 MG TABLET PO SCH (17:58)
[2021-01-09] MEDS: Aspirin 81 MG TAB.CHEW PO SCH (22:24)
[2021-01-09] MEDS: *HR* OxyCODONE Immed Rel 5 MG TABLET PO PRN (22:24)
[2021-01-10] MEDS: Ipratropium/Albuterol Neb 3 ML IH SCH ×4 (04:04→21:01)
[2021-01-10 05:12] LABS: Hemoglobin 15.6 g/dL (12.9-16.9); Mean Corpuscular HGB Conc 30.6 g/dL (31.6-35.5); Mean Corpuscular Hemoglobin 28.6 pg (28.0-33.3); Mean Corpuscular Volume 93.4 fL (83.0-100.0); Mean Platelet Volume 10.4 fL (9.4-12.4); Platelet Count 225 K/mcL (140-400); Red Blood Count 5.46 M/mcL (4.19-5.50); Red Cell Distribution Width 14.7 % (11.5-14.5); White Blood Count 8.8 K/mcL (4.3-11.1)
[2021-01-10 05:31] LABS: Alanine Aminotransferase 25 Units/L (7-52); Albumin 3.8 g/dL (3.5-5.7); Alkaline Phosphatase 59 Units/L (34-104); Aspartate Amino Transferase 19 Units/L (13-39); BUN/Creatinine Ratio 20 (6-26); Bilirubin,Total 0.6 mg/dL (0.3-1.0); Blood Urea Nitrogen 22 mg/dL (8-23); Calcium 9.6 mg/dL (8.6-10.3); Carbon Dioxide 37 mEq/L (23-29); Chloride 97 mEq/L (98-107); Globulin 3.8 g/dL (2.4-3.5); Glucose 138 mg/dL (70-105); Magnesium 2.4 mg/dL (1.6-2.6); Osmolality,Calculated 294 (280-300); Potassium 3.9 mEq/L (3.5-5.1); Sodium 139 mEq/L (136-145); Total Protein 7.6 g/dL (6.4-8.9); eGFR For African Americans > 60 (> 60); eGFR For Non-African Americans > 60 (> 60)
[2021-01-10] MEDS: Insulin LISPRO 300 UNITS/3 ML VIAL SUBQ SCH ×4 (07:14→20:41)
[2021-01-10] MEDS: *HR* Rivaroxaban 10 MG TABLET PO SCH (08:34)
[2021-01-10] MEDS: Furosemide 40 MG TABLET PO SCH (08:35)
[2021-01-10] MEDS: acetaZOLAMIDE 250 MG TABLET PO SCH (08:35)
[2021-01-10] MEDS: levETIRAcetam 250 MG TABLET PO SCH ×2 (08:35→20:42)
[2021-01-10] MEDS: Insulin DETEMIR 100 UNIT/ML X5UNITS SUBQ SCH ×2 (08:41→20:42)
[2021-01-10 09:18] LABS: VBG HCO3 33 mEq/L (21-27); VBG PCO2 54 mmHg (41-51); VBG PH 7.39 pH Units (7.32-7.42); VBG PO2 79 mmHg (25-50)
[2021-01-10] MEDS: lisinopriL 5 MG TABLET PO SCH (14:21)
[2021-01-10] MEDS ORDERED: Furosemide 40 MG TABLET PO ONE (15:47)
[2021-01-10] MEDS: levoFLOXacin 500 MG TABLET PO SCH (16:22)
[2021-01-10] MEDS: carvediloL 6.25 MG TABLET PO SCH (16:48)
[2021-01-10] MEDS: Aspirin 81 MG TAB.CHEW PO SCH (20:41)
[2021-01-10] MEDS: *HR* OxyCODONE Immed Rel 5 MG TABLET PO PRN (20:42)
[2021-01-11] MEDS: Ipratropium/Albuterol Neb 3 ML IH SCH ×4 (03:21→21:22)
[2021-01-11] MEDS: Insulin LISPRO 300 UNITS/3 ML VIAL SUBQ SCH ×4 (09:10→21:14)
[2021-01-11] MEDS: levETIRAcetam 250 MG TABLET PO SCH ×2 (10:24→21:13)
[2021-01-11] MEDS: acetaZOLAMIDE 250 MG TABLET PO SCH (10:24)
[2021-01-11] MEDS: Furosemide 40 MG TABLET PO SCH (10:25)
[2021-01-11] MEDS: lisinopriL 5 MG TABLET PO SCH (10:25)
[2021-01-11] MEDS: *HR* Rivaroxaban 10 MG TABLET PO SCH (10:25)
[2021-01-11] MEDS: carvediloL 6.25 MG TABLET PO SCH ×2 (10:25→17:02)
[2021-01-11] MEDS: Insulin DETEMIR 100 UNIT/ML X5UNITS SUBQ SCH ×2 (10:30→23:40)
[2021-01-11 11:15] LABS: VBG HCO3 35 mEq/L (21-27); VBG PCO2 62 mmHg (41-51); VBG PH 7.37 pH Units (7.32-7.42); VBG PO2 25 mmHg (25-50)
[2021-01-11] MEDS: Aspirin 81 MG TAB.CHEW PO SCH (21:14)
[2021-01-12] MEDS: *HR* OxyCODONE Immed Rel 5 MG TABLET PO PRN (02:09)
[2021-01-12] MEDS: Ipratropium/Albuterol Neb 3 ML IH SCH ×4 (02:38→21:51)
[2021-01-12] MEDS: Insulin LISPRO 300 UNITS/3 ML VIAL SUBQ SCH ×4 (08:03→20:12)
[2021-01-12] MEDS: Insulin DETEMIR 100 UNIT/ML X5UNITS SUBQ SCH ×2 (08:34→20:11)
[2021-01-12] MEDS: *HR* Rivaroxaban 10 MG TABLET PO SCH (08:35)
[2021-01-12] MEDS: acetaZOLAMIDE 250 MG TABLET PO SCH (08:35)
[2021-01-12] MEDS: levETIRAcetam 250 MG TABLET PO SCH ×2 (08:35→20:11)
[2021-01-12] MEDS: Furosemide 40 MG TABLET PO SCH (08:35)
[2021-01-12] MEDS: lisinopriL 5 MG TABLET PO SCH (08:35)
[2021-01-12] MEDS: carvediloL 6.25 MG TABLET PO SCH ×2 (08:37→16:21)
[2021-01-12] MEDS: polyethylene glycoL 3350 17 GM POWD.PACK PO SCH (12:35)
[2021-01-12] MEDS: Sennosides 8.6 MG TABLET PO SCH (20:11)
[2021-01-12] MEDS: Aspirin 81 MG TAB.CHEW PO SCH (20:11)
[2021-01-13] MEDS: Ipratropium/Albuterol Neb 3 ML IH SCH ×4 (03:17→21:52)
[2021-01-13 07:24] LABS: Hematocrit 49.6 % (37.5-50.1); Mean Corpuscular HGB Conc 30.2 g/dL (31.6-35.5); Mean Corpuscular Volume 92.7 fL (83.0-100.0); Mean Platelet Volume 11.1 fL (9.4-12.4); Platelet Count 220 K/mcL (140-400); Red Blood Count 5.35 M/mcL (4.19-5.50); Red Cell Distribution Width 14.7 % (11.5-14.5); White Blood Count 10.1 K/mcL (4.3-11.1)
[2021-01-13 07:55] LABS: Alanine Aminotransferase 18 Units/L (7-52); Albumin 3.5 g/dL (3.5-5.7); Albumin/Globulin Ratio 0.9 (1.1-2.2); Alkaline Phosphatase 61 Units/L (34-104); Aspartate Amino Transferase 13 Units/L (13-39); BUN/Creatinine Ratio 29 (6-26); Bilirubin,Total 0.5 mg/dL (0.3-1.0); Blood Urea Nitrogen 35 mg/dL (8-23); Calcium 9.5 mg/dL (8.6-10.3); Carbon Dioxide 32 mEq/L (23-29); Chloride 104 mEq/L (98-107); Globulin 3.8 g/dL (2.4-3.5); Glucose 152 mg/dL (70-105); Magnesium 2.4 mg/dL (1.6-2.6); Osmolality,Calculated 303 (280-300); Potassium 3.8 mEq/L (3.5-5.1); Sodium 141 mEq/L (136-145); Total Protein 7.3 g/dL (6.4-8.9); eGFR For African Americans > 60 (> 60); eGFR For Non-African Americans 60 (> 60)
[2021-01-13 08:13] LABS: VBG HCO3 32 mEq/L (21-27); VBG PCO2 61 mmHg (41-51); VBG PH 7.32 pH Units (7.32-7.42); VBG PO2 35 mmHg (25-50)
[2021-01-13] MEDS: polyethylene glycoL 3350 17 GM POWD.PACK PO SCH (08:32)
[2021-01-13] MEDS: Furosemide 40 MG TABLET PO SCH (08:33)
[2021-01-13] MEDS: levETIRAcetam 250 MG TABLET PO SCH ×2 (08:33→20:48)
[2021-01-13] MEDS: carvediloL 6.25 MG TABLET PO SCH ×2 (08:33→16:59)
[2021-01-13] MEDS: lisinopriL 5 MG TABLET PO SCH (08:33)
[2021-01-13] MEDS: Ketoconazole Shampoo 120 ML BOTTLE TP SCH (08:34)
[2021-01-13] MEDS: Sennosides 8.6 MG TABLET PO SCH ×2 (08:34→20:47)
[2021-01-13] MEDS: *HR* Rivaroxaban 10 MG TABLET PO SCH (08:34)
[2021-01-13] MEDS: acetaZOLAMIDE 250 MG TABLET PO SCH (08:34)
[2021-01-13] MEDS: Insulin DETEMIR 100 UNIT/ML X5UNITS SUBQ SCH ×2 (08:34→20:48)
[2021-01-13] MEDS: Insulin LISPRO 300 UNITS/3 ML VIAL SUBQ SCH ×4 (08:40→20:48)
[2021-01-13] MEDS: Aspirin 81 MG TAB.CHEW PO SCH (20:47)
[2021-01-14] MEDS: Ipratropium/Albuterol Neb 3 ML IH SCH ×4 (03:30→20:01)
[2021-01-14] MEDS: Insulin LISPRO 300 UNITS/3 ML VIAL SUBQ SCH ×4 (07:56→21:28)
[2021-01-14] MEDS: polyethylene glycoL 3350 17 GM POWD.PACK PO SCH (09:35)
[2021-01-14] MEDS: Sennosides 8.6 MG TABLET PO SCH ×2 (09:35→21:28)
[2021-01-14] MEDS: carvediloL 6.25 MG TABLET PO SCH ×2 (09:35→16:48)
[2021-01-14] MEDS: levETIRAcetam 250 MG TABLET PO SCH ×2 (09:35→21:28)
[2021-01-14] MEDS: lisinopriL 5 MG TABLET PO SCH (09:35)
[2021-01-14] MEDS: *HR* Rivaroxaban 10 MG TABLET PO SCH (09:35)
[2021-01-14] MEDS: Insulin DETEMIR 100 UNIT/ML X5UNITS SUBQ SCH ×2 (09:35→21:27)
[2021-01-14] MEDS: acetaZOLAMIDE 250 MG TABLET PO SCH (09:35)
[2021-01-14] MEDS: Furosemide 40 MG TABLET PO SCH (09:36)
[2021-01-14] MEDS: Amoxicillin 500 MG CAPSULE PO SCH (16:48)
[2021-01-14] MEDS: *HR* OxyCODONE Immed Rel 5 MG TABLET PO PRN (21:28)
[2021-01-14] MEDS: Aspirin 81 MG TAB.CHEW PO SCH (21:28)
[2021-01-15] MEDS: Amoxicillin 500 MG CAPSULE PO SCH ×4 (00:05→23:55)
[2021-01-15] MEDS: Ipratropium/Albuterol Neb 3 ML IH SCH ×4 (03:37→21:17)
[2021-01-15] MEDS: Insulin LISPRO 300 UNITS/3 ML VIAL SUBQ SCH ×4 (07:46→20:07)
[2021-01-15] MEDS: polyethylene glycoL 3350 17 GM POWD.PACK PO SCH (08:30)
[2021-01-15] MEDS: Furosemide 40 MG TABLET PO SCH (08:31)
[2021-01-15] MEDS: Insulin DETEMIR 100 UNIT/ML X5UNITS SUBQ SCH ×2 (08:31→20:10)
[2021-01-15] MEDS: lisinopriL 5 MG TABLET PO SCH (08:32)
[2021-01-15] MEDS: carvediloL 6.25 MG TABLET PO SCH ×2 (08:32→17:24)
[2021-01-15] MEDS: Sennosides 8.6 MG TABLET PO SCH ×2 (08:32→20:07)
[2021-01-15] MEDS: *HR* Rivaroxaban 10 MG TABLET PO SCH (08:32)
[2021-01-15] MEDS: acetaZOLAMIDE 250 MG TABLET PO SCH (08:32)
[2021-01-15] MEDS: levETIRAcetam 250 MG TABLET PO SCH ×2 (08:32→20:07)
[2021-01-15] MEDS: Aspirin 81 MG TAB.CHEW PO SCH (20:07)
[2021-01-15] MEDS: *HR* OxyCODONE Immed Rel 5 MG TABLET PO PRN (20:08)
[2021-01-16] MEDS: Ipratropium/Albuterol Neb 3 ML IH SCH ×4 (03:18→21:02)
[2021-01-16 05:58] LABS: Hematocrit 48.1 % (37.5-50.1); Hemoglobin 14.5 g/dL (12.9-16.9); Mean Corpuscular HGB Conc 30.1 g/dL (31.6-35.5); Mean Corpuscular Hemoglobin 28.3 pg (28.0-33.3); Mean Corpuscular Volume 93.8 fL (83.0-100.0); Mean Platelet Volume 11.4 fL (9.4-12.4); Platelet Count 222 K/mcL (140-400); Red Blood Count 5.13 M/mcL (4.19-5.50); Red Cell Distribution Width 14.5 % (11.5-14.5); White Blood Count 8.2 K/mcL (4.3-11.1)
[2021-01-16 06:05] LABS: VBG HCO3 33 mEq/L (21-27); VBG PCO2 64 mmHg (41-51); VBG PH 7.32 pH Units (7.32-7.42); VBG PO2 44 mmHg (25-50)
[2021-01-16 06:19] LABS: Alanine Aminotransferase 13 Units/L (7-52); Albumin 3.4 g/dL (3.5-5.7); Alkaline Phosphatase 68 Units/L (34-104); Aspartate Amino Transferase 10 Units/L (13-39); BUN/Creatinine Ratio 28 (6-26); Bilirubin,Total 0.5 mg/dL (0.3-1.0); Blood Urea Nitrogen 30 mg/dL (8-23); Calcium 9.1 mg/dL (8.6-10.3); Carbon Dioxide 33 mEq/L (23-29); Chloride 101 mEq/L (98-107); Globulin 3.5 g/dL (2.4-3.5); Glucose 140 mg/dL (70-105); Magnesium 2.2 mg/dL (1.6-2.6); Osmolality,Calculated 296 (280-300); Potassium 3.8 mEq/L (3.5-5.1); Sodium 139 mEq/L (136-145); Total Protein 6.9 g/dL (6.4-8.9); eGFR For African Americans > 60 (> 60); eGFR For Non-African Americans > 60 (> 60)
[2021-01-16] MEDS: Insulin LISPRO 300 UNITS/3 ML VIAL SUBQ SCH ×4 (09:38→20:49)
[2021-01-16] MEDS: polyethylene glycoL 3350 17 GM POWD.PACK PO SCH (09:39)
[2021-01-16] MEDS: Furosemide 40 MG TABLET PO SCH (09:39)
[2021-01-16] MEDS: carvediloL 6.25 MG TABLET PO SCH ×2 (09:39→17:07)
[2021-01-16] MEDS: lisinopriL 5 MG TABLET PO SCH (09:39)
[2021-01-16] MEDS: Amoxicillin 500 MG CAPSULE PO SCH ×2 (09:39→17:07)
[2021-01-16] MEDS: levETIRAcetam 250 MG TABLET PO SCH ×2 (09:39→20:49)
[2021-01-16] MEDS: acetaZOLAMIDE 250 MG TABLET PO SCH (09:39)
[2021-01-16] MEDS: *HR* Rivaroxaban 10 MG TABLET PO SCH (09:39)
[2021-01-16] MEDS: Sennosides 8.6 MG TABLET PO SCH ×2 (09:39→20:49)
[2021-01-16] MEDS: Insulin DETEMIR 100 UNIT/ML X5UNITS SUBQ SCH ×2 (09:40→20:50)
[2021-01-16] MEDS: Ketoconazole Shampoo 120 ML BOTTLE TP SCH ×2 (11:32)
[2021-01-16] MEDS: Aspirin 81 MG TAB.CHEW PO SCH (20:49)
[2021-01-16] MEDS: *HR* OxyCODONE Immed Rel 5 MG TABLET PO PRN (20:50)
[2021-01-17] MEDS: Amoxicillin 500 MG CAPSULE PO SCH ×3 (00:28→16:24)
[2021-01-17] MEDS: Ipratropium/Albuterol Neb 3 ML IH SCH ×4 (03:06→21:59)
[2021-01-17] MEDS: acetaZOLAMIDE 250 MG TABLET PO SCH (08:19)
[2021-01-17] MEDS: Insulin LISPRO 300 UNITS/3 ML VIAL SUBQ SCH ×4 (08:19→21:12)
[2021-01-17] MEDS: Sennosides 8.6 MG TABLET PO SCH ×2 (08:19→21:12)
[2021-01-17] MEDS: Furosemide 40 MG TABLET PO SCH (08:19)
[2021-01-17] MEDS: carvediloL 6.25 MG TABLET PO SCH ×2 (08:20→16:24)
[2021-01-17] MEDS: *HR* Rivaroxaban 10 MG TABLET PO SCH (08:20)
[2021-01-17] MEDS: levETIRAcetam 250 MG TABLET PO SCH ×2 (08:20→21:12)
[2021-01-17] MEDS: lisinopriL 5 MG TABLET PO SCH (08:20)
[2021-01-17] MEDS: polyethylene glycoL 3350 17 GM POWD.PACK PO SCH (08:21)
[2021-01-17] MEDS: Insulin DETEMIR 100 UNIT/ML X5UNITS SUBQ SCH ×2 (08:26→21:12)
[2021-01-17] MEDS: Aspirin 81 MG TAB.CHEW PO SCH (21:12)
[2021-01-18] MEDS: Amoxicillin 500 MG CAPSULE PO SCH ×4 (01:28→23:00)
[2021-01-18] MEDS: Ipratropium/Albuterol Neb 3 ML IH SCH ×4 (03:07→21:25)
[2021-01-18] MEDS: Insulin LISPRO 300 UNITS/3 ML VIAL SUBQ SCH ×4 (08:21→22:42)
[2021-01-18] MEDS: polyethylene glycoL 3350 17 GM POWD.PACK PO SCH (08:30)
[2021-01-18] MEDS: levETIRAcetam 250 MG TABLET PO SCH ×2 (08:32→22:41)
[2021-01-18] MEDS: carvediloL 6.25 MG TABLET PO SCH ×2 (08:32→17:07)
[2021-01-18] MEDS: Sennosides 8.6 MG TABLET PO SCH ×2 (08:32→22:42)
[2021-01-18] MEDS: acetaZOLAMIDE 250 MG TABLET PO SCH (08:32)
[2021-01-18] MEDS: lisinopriL 5 MG TABLET PO SCH (08:33)
[2021-01-18] MEDS: *HR* Rivaroxaban 10 MG TABLET PO SCH (08:33)
[2021-01-18] MEDS: Furosemide 40 MG TABLET PO SCH (08:33)
[2021-01-18] MEDS: Insulin DETEMIR 100 UNIT/ML X5UNITS SUBQ SCH ×2 (11:40→22:42)
[2021-01-18] MEDS: *HR* OxyCODONE Immed Rel 5 MG TABLET PO PRN ×2 (14:08→22:41)
[2021-01-18 15:09] LABS: Hematocrit 48.6 % (37.5-50.1); Hemoglobin 15.1 g/dL (12.9-16.9); Mean Corpuscular HGB Conc 31.1 g/dL (31.6-35.5); Mean Corpuscular Hemoglobin 28.7 pg (28.0-33.3); Mean Corpuscular Volume 92.4 fL (83.0-100.0); Mean Platelet Volume 11.4 fL (9.4-12.4); Platelet Count 237 K/mcL (140-400); Red Blood Count 5.26 M/mcL (4.19-5.50); Red Cell Distribution Width 14.2 % (11.5-14.5); White Blood Count 10.1 K/mcL (4.3-11.1)
[2021-01-18 15:26] LABS: INR 1.6; Prothrombin Time 18.4 Seconds (9.4-12.1)
[2021-01-18 15:34] LABS: Activated Partial Thrombo Time 40.7 Seconds (26.0-36.0)
[2021-01-18 15:37] LABS: BUN/Creatinine Ratio 22 (6-26); Blood Urea Nitrogen 27 mg/dL (8-23); Calcium 9.3 mg/dL (8.6-10.3); Carbon Dioxide 30 mEq/L (23-29); Chloride 102 mEq/L (98-107); Glucose 141 mg/dL (70-105); Osmolality,Calculated 293 (280-300); Potassium 3.9 mEq/L (3.5-5.1); Sodium 138 mEq/L (136-145); eGFR For African Americans > 60 (> 60); eGFR For Non-African Americans 59 (> 60)
[2021-01-18] MEDS: Aspirin 81 MG TAB.CHEW PO SCH (22:41)
[2021-01-19] MEDS: Ipratropium/Albuterol Neb 3 ML IH SCH ×4 (03:21→21:36)
[2021-01-19] MEDS: Insulin LISPRO 300 UNITS/3 ML VIAL SUBQ SCH ×4 (08:36→22:49)
[2021-01-19] MEDS: levETIRAcetam 250 MG TABLET PO SCH ×2 (08:44→22:49)
[2021-01-19] MEDS: Furosemide 40 MG TABLET PO SCH (08:44)
[2021-01-19] MEDS: Amoxicillin 500 MG CAPSULE PO SCH ×3 (08:44→23:00)
[2021-01-19] MEDS: carvediloL 6.25 MG TABLET PO SCH ×2 (08:44→16:40)
[2021-01-19] MEDS: acetaZOLAMIDE 250 MG TABLET PO SCH (08:44)
[2021-01-19] MEDS: lisinopriL 5 MG TABLET PO SCH (08:45)
[2021-01-19] MEDS: Insulin DETEMIR 100 UNIT/ML X5UNITS SUBQ SCH ×2 (08:45→23:00)
[2021-01-19] MEDS: *HR* Rivaroxaban 10 MG TABLET PO SCH (08:45)
[2021-01-19] MEDS: polyethylene glycoL 3350 17 GM POWD.PACK PO SCH (08:45)
[2021-01-19] MEDS: Sennosides 8.6 MG TABLET PO SCH ×2 (08:46→22:49)
[2021-01-19] MEDS: Aspirin 81 MG TAB.CHEW PO SCH (22:48)
[2021-01-19] MEDS: *HR* OxyCODONE Immed Rel 5 MG TABLET PO PRN (22:50)
[2021-01-20] MEDS: Ipratropium/Albuterol Neb 3 ML IH SCH ×4 (03:42→20:54)
[2021-01-20] MEDS: Insulin LISPRO 300 UNITS/3 ML VIAL SUBQ SCH (07:33)
[2021-01-20] MEDS: lisinopriL 5 MG TABLET PO SCH (08:21)
[2021-01-20] MEDS: Amoxicillin 500 MG CAPSULE PO SCH ×3 (08:24→22:59)
[2021-01-20] MEDS: Sennosides 8.6 MG TABLET PO SCH ×2 (08:25→22:59)
[2021-01-20] MEDS: polyethylene glycoL 3350 17 GM POWD.PACK PO SCH (08:25)
[2021-01-20] MEDS: Furosemide 40 MG TABLET PO SCH (08:25)
[2021-01-20] MEDS: *HR* Rivaroxaban 10 MG TABLET PO SCH (08:25)
[2021-01-20] MEDS: carvediloL 6.25 MG TABLET PO SCH ×2 (08:25→18:24)
[2021-01-20] MEDS: acetaZOLAMIDE 250 MG TABLET PO SCH (08:25)
[2021-01-20] MEDS: Insulin DETEMIR 100 UNIT/ML X5UNITS SUBQ SCH ×2 (08:25→22:58)
[2021-01-20] MEDS: levETIRAcetam 250 MG TABLET PO SCH ×2 (08:25→22:59)
[2021-01-20 15:29] LABS: ABG Base Excess 2 mEq/L (-2 to 3); ABG HCO3 29 mEq/L (21-27); ABG Oxygen Saturation 92 % (95-98); ABG PCO2 56 mmHg (35-45); ABG PH 7.33 pH Units (7.32-7.45); ABG PO2 71 mmHg (85-104); ABG TCO2 31 mEq/L (20-26)
[2021-01-20] MEDS: Ketoconazole Shampoo 120 ML BOTTLE TP SCH (18:56)
[2021-01-20] MEDS: *HR* OxyCODONE Immed Rel 5 MG TABLET PO PRN (22:59)
[2021-01-20] MEDS: Aspirin 81 MG TAB.CHEW PO SCH (22:59)
[2021-01-21] MEDS: Ipratropium/Albuterol Neb 3 ML IH SCH ×2 (03:38→10:17)
[2021-01-21 07:14] VITALS: BP 126/70
[2021-01-21 07:23] LABS: ABG Base Excess 3 mEq/L (-2 to 3); ABG HCO3 32 mEq/L (21-27); ABG Oxygen Saturation 89 % (95-98); ABG PCO2 63 mmHg (35-45); ABG PH 7.31 pH Units (7.32-7.45); ABG PO2 63 mmHg (85-104); ABG TCO2 33 mEq/L (20-26)
[2021-01-21] MEDS: polyethylene glycoL 3350 17 GM POWD.PACK PO SCH (09:03)
[2021-01-21] MEDS: Amoxicillin 500 MG CAPSULE PO SCH (09:03)
[2021-01-21] MEDS: lisinopriL 5 MG TABLET PO SCH (09:03)
[2021-01-21] MEDS: Furosemide 40 MG TABLET PO SCH (09:03)
[2021-01-21] MEDS: carvediloL 6.25 MG TABLET PO SCH (09:04)
[2021-01-21] MEDS: levETIRAcetam 250 MG TABLET PO SCH (09:04)
[2021-01-21] MEDS: *HR* Rivaroxaban 10 MG TABLET PO SCH (09:04)
[2021-01-21] MEDS: Sennosides 8.6 MG TABLET PO SCH (09:04)
[2021-01-21] MEDS: Insulin DETEMIR 100 UNIT/ML X5UNITS SUBQ SCH (09:13)
== END 2021-01-21 12:10 | disposition home health service (06) | DRG 945 ==
LOC: INPGRE 16:19
PROVIDERS: ADMIT Family Medicine; ATTEND Family Medicine